=== PATIENT | male | born 1965 | race Caucasian/White ===

== ENCOUNTER 2022-03-15 08:24 | Outpatient (CLI) | payer BC, SELFPAY ==
[2022-03-15 13:55] LABS: Albumin* 4.3 g/dL (3.3-5.0); Chloride* 104 mmol/L (96-114)
[2022-03-15 13:56] LABS: Potassium* 4.7 mmol/L (3.6-5.1); Sodium* 138 mmol/L (135-149)
[2022-03-15 13:57] LABS: Cholesterol* 169 mg/dL (90-199)
[2022-03-15 13:58] LABS: Alanine Aminotransferase* 21 U/L (4-50); Alkaline Phosphatase* 45 U/L (40-150); Aspartate Amino Transferase* 21 U/L (12-35); Bilirubin Total* 0.8 mg/dL (0.1-1.5); Blood Urea Nitrogen* 23 mg/dL (7-30); Carbon Dioxide* 27 mmol/L (20-32); Creatinine* 0.9 mg/dL (0.5-1.5); Estimated Glomerular Filt Rate 100 ml/min; Total Protein* 6.7 g/dL (6.0-8.3)
[2022-03-15 13:59] LABS: Calcium* 8.8 mg/dL (8.4-10.6); Glucose* 92 mg/dL (60-115); HDL Cholesterol* 44 mg/dL (>=40); LDL Cholesterol Calculated 112 mg/dL (<100); Triglycerides* 66 mg/dL (40-149)
[2022-03-15 14:27] LABS: PSA Screen* 0.68 ng/mL (0.10-4.00)
[2022-03-15 14:44] LABS: Hepatitis C Virus Antibody* Negative (Negative)
--- NOTE | 2022-03-23 09:34 | ONC.NURNOTE ---
Received referal from Dr. Dennis, requested follow up CBC to be sure that not transient level. Will schedule patient following completion.
== END 2022-03-15 08:25 | disposition home or self-care (01) ==
PROVIDERS: PCP Family Medicine; Visit Provider Family Medicine
DX: Z00.00 Encounter for general adult medical examination without abnormal findings (principal); D70.9 Neutropenia, unspecified; D72.819 Decreased white blood cell count, unspecified; Z12.5 Encounter for screening for malignant neoplasm of prostate; Z11.59 Encounter for screening for other viral diseases; Z13.6 Encounter for screening for cardiovascular disorders
CPT/HCPCS: 80053; 80061; 84153; 86803

== ENCOUNTER 2022-07-12 22:15 | Outpatient (REF) | payer BC, SELFPAY ==
[2022-07-12 22:52] LABS: Eosinophils Percent Auto 0.7 % (0.0-7.0); Hemoglobin* 15.3 gm/dL (13.5-17.5); Mean Corpuscular Hemoglobin 31 pg (26-34); Mean Corpuscular Volume 92 fL (80-100)
[2022-07-12 22:55] LABS: Slide Review Reflex No
[2022-07-12 23:05] LABS: Basophils Percent Auto 0.7 % (0.0-3.0); Hematocrit 46.2 % (37.0-53.0); Lymphocytes Percent Auto 39.2 % (20-44); Mean Corpuscular HGB Conc 33 gm/dL (32-36); Monocytes Percent Auto 12.1 % (0.0-11.0); Neutrophils Percent Auto 47.3 % (42.0-72.0); Platelet Count* 196 K/uL (140-440); Red Blood Count 5.02 m/uL (4.30-5.90); White Blood Count* 4.29 K/uL (4.50-11.00)
== END 2022-07-12 22:16 | disposition home or self-care (01) ==
LOC: NFLDLAB 22:15
PROVIDERS: PCP Family Medicine; Visit Provider Clinical Nurse Specialist
DX: D70.9 Neutropenia, unspecified (principal); D72.819 Decreased white blood cell count, unspecified
CPT/HCPCS: 36415; 85025

== ENCOUNTER 2023-03-15 08:18 | Outpatient (CLI) | payer BC, SELFPAY | END 2023-03-15 08:19 | disposition home or self-care (01) | PROVIDERS: PCP Family Medicine; Visit Provider Family Medicine | DX: Z00.00 Encounter for general adult medical examination without abnormal findings (principal); D70.9 Neutropenia, unspecified; Z13.6 Encounter for screening for cardiovascular disorders; Z12.5 Encounter for screening for malignant neoplasm of prostate | CPT/HCPCS: 80053; 80061; 84153 ==